=== PATIENT | female | born 1955 | race Two or more races ===

== ENCOUNTER 2016-10-04 07:57 | Day surgery (SDC) | payer BC ==
[2016-09-30 13:55] VITALS: BMI 31.6
--- NOTE | 2016-10-04 06:27 | HP ---
History & Physical Update - History History: No Change - Physical Physical: No Change - Assessment Assessment: No Change - Plan Plan: No Change
[~2016-10-04 07:57] MED LIST: TOBRA 0.3%/DEXAMETH 0.1% OPHTHALMIC SUSP 2.5 ML BTL TP ONE
[2016-10-04] MEDS ORDERED: MOXIFLOXACIN HCL 0.5% OPHTHALMIC 3 ML BOTTLE ONE (08:16)
[2016-10-04] MEDS ORDERED: CYCLOPENTOLATE HCL 1% OPHTH SOLN 2 ML BOTTLE ONE (08:16)
[2016-10-04] MEDS ORDERED: PHENYLEPHRINE 2.5% OPHTH SOLN 15 ML BOTTLE ONE (08:16)
[2016-10-04] MEDS ORDERED: TROPICAMIDE 1% OPHTH SOLN 15 ML BOTTLE ONE (08:16)
[2016-10-04 08:21] VITALS: TEMP 98
[2016-10-04] MEDS: MOXIFLOXACIN HCL 0.5% OPHTHALMIC 3 ML BOTTLE OP SCH ×2 (08:25→08:30)
[2016-10-04] MEDS: PHENYLEPHRINE 2.5% OPHTH SOLN 15 ML BOTTLE OP SCH ×2 (08:25→08:30)
[2016-10-04] MEDS: CYCLOPENTOLATE HCL 1% OPHTH SOLN 2 ML BOTTLE OP SCH ×2 (08:25→08:30)
[2016-10-04] MEDS: TROPICAMIDE 1% OPHTH SOLN 15 ML BOTTLE OP SCH ×2 (08:25→08:30)
[2016-10-04] MEDS ORDERED: MIDAZOLAM HCL 2 MG/2 ML SINGLE DOSE VIAL ONE (08:55)
[2016-10-04] MEDS ORDERED: TETRACAINE 0.5% OPHTH SOLN 2 ML BOTTLE OD ONE (08:57)
[2016-10-04] MEDS ORDERED: POVIDONE-IODINE 5% OPHTHALMIC PREP 30 ML SOLUTION OD ONE (08:59)
[2016-10-04] MEDS ORDERED: BSS (NA/CA/MG/K) BALANCED SALT SOLUTION OPHTH SOLN 15 ML BOTTLE OD ONE (09:08)
[2016-10-04] MEDS ORDERED: EPINEPHrine/PF 1 MG/1 ML (1:1,000) AMPULE SQ ONE (09:08)
[2016-10-04] MEDS ORDERED: CHONDROITIN SU A/HYALUR SOD 1 KIT IO ONE ×2 (09:08)
[2016-10-04] MEDS ORDERED: LIDOCAINE HCL 1% PRESERVATIVE FREE - 30ML VIAL IO ONE (09:08)
[2016-10-04] MEDS ORDERED: ACETYLCHOLINE 1:100 INTRA-OCUL 20 MG/2 ML KIT ONE (09:27)
[2016-10-04] MEDS ORDERED: ACETYLCHOLINE 1:100 INTRA-OCUL 20 MG/2 ML KIT IO ONE (09:47)
[2016-10-04] MEDS ORDERED: TOBRA 0.3%/DEXAMETH 0.1% OPHTHALMIC SUSP 2.5 ML BTL TP ONE (09:52)
[2016-10-04 12:22] VITALS: BP 120/82; PULSE 78
--- NOTE | 2016-10-04 13:35 | OP ---
DATE OF OPERATION: 10/04/2016 SURGEON: George Kuhn MD PREOPERATIVE DIAGNOSIS: Cataract, right eye. OPERATION: Phacoemulsification and intraocular lens implantation, right eye. POSTOPERATIVE DIAGNOSIS: Cataract, right eye. ANESTHESIA: Topical. COMPLICATIONS: Posterior capsular tear. BLOOD LOSS: None. SPECIMEN: None. BRIEF HISTORY: The patient is a 61-year-old woman with a past medical history of diabetes, who presented with decreased vision in the right eye down to 20/200 due to a 2+ to 3+ nuclear sclerotic lens. After the risks, benefits, and alternatives to cataract surgery were discussed with the patient including the increased risk of corneal decompensation due to her guttata, patient consented to surgery. DESCRIPTION OF PROCEDURE: The patient was brought to the operating room and prepped and draped in the usual sterile fashion. An eyelid speculum was inserted in the right eye. A paracentesis was made, and the anterior chamber was inflated with nonpreserved lidocaine. This was followed by injection of Viscoat. A groove was made in the temporal clear cornea which was tunneled forward with a crescent blade. The anterior chamber was entered with a 2.75 keratome. The cystotome was used to make an incision in the center of the capsule, and a continuous curvilinear capsulorrhexis was created. The lens was hydrodissected until it was found to rotate freely within the capsular bag. Phacoemulsification was started, and it was noted there was severe adherence of a quadrant located nasally. The remainder of the lens was removed; however, once this adherent quadrant was removed, it was noted that there was a posterior capsular tear at the area of this adherence. Irrigation and aspiration were attempted; however, due to the size of the posterior capsular tear, anterior vitrectomy was performed in order to clear the vitreous from the area. Irrigation and aspiration were used to remove some of the cortical material. However, an area subincisionally was unable to be removed with the anterior vitrector or with irrigation and aspiration. The anterior chamber and sulcus area were reinflated with Provisc. The wound was enlarged, and a 21.0-diopter MA60AC lens was folded and inserted into the sulcus. The 2nd haptic was dunked without incident. Irrigation and aspiration were used to remove residual viscoelastic. Miochol was injected into the eye, and the pupil was found to constrict round with no peaking. Two 10-0 nylon sutures were placed at the wound in order to maintain the eye to be watertight, and the eye at an appropriate pressure. The eyelid speculum was removed from the eye, and TobraDex drops and a clear shield were placed over the right eye. The patient was transferred to the recovery room in stable condition and will follow up tomorrow. Rosemarie [id number] MTDD
== END 2016-10-04 11:45 | disposition home or self-care (01) ==
LOC: JASU-SURG 07:57
PROVIDERS: ATTEND Ophthalmology
PROC: 08RJ3JZ Replacement of Right Lens with Synthetic Substitute, Percutaneous Approach (ICD-10-PCS; principal; 2016-10-04 10:00)
DX: H26.8 Other specified cataract (principal)

== ENCOUNTER 2017-11-28 07:14 | Day surgery (SDC) | payer BC ==
[2017-11-27 10:06] VITALS: BMI 35.4
[2017-11-28 07:34] VITALS: TEMP 98.7
[2017-11-28 12:09] VITALS: BP 149/69; PULSE 83
== END 2017-11-28 11:30 | disposition home or self-care (01) ==
LOC: JASU-SURG 07:14
PROVIDERS: ATTEND Ophthalmology
PROC: 08RK3JZ Replacement of Left Lens with Synthetic Substitute, Percutaneous Approach (ICD-10-PCS; principal; 2017-11-28)
DX: H26.9 Unspecified cataract (principal); H57.03 Miosis
CPT/HCPCS: 82962

== ENCOUNTER 2020-03-04 11:13 | Day surgery (SDC) | payer BC ==
--- NOTE | 2020-02-25 09:32 | HP ---
DATE OF ADMISSION: 03/04/2020 DATE OF DICTATION: 01/14/2020 BRIEF HISTORY: This is a 64-year-old female who in mid-December presented to [facility] with excruciating upper abdominal pain associated with nausea and vomiting. She was diagnosed as having biliary issues and subsequently passing a stone. She underwent an MRI at that time that demonstrated gallstones without evidence of CBD stone. Patient was managed medically and subsequently went on to resolve her pain. She had several other episodes following that acute event and each episode has lasted less than 6 hours. Patient denies fever, chills or sweats. No change in stool color or urine color. PAST MEDICAL HISTORY: Significant for reflux disease, diabetes and arthritic changes. PAST SURGICAL HISTORY: Patient has had laparoscopic oophorectomy in the past. ALLERGIES: None. MEDICATIONS: Metformin, Trulicity, omeprazole. SOCIAL HISTORY: Patient does not smoke, does not drink. No history of drug use. PHYSICAL EXAMINATION: HEENT: There is no icterus. Abdomen: Soft, nontender, nondistended. No CVA tenderness. Very well-healed laparoscopic oophorectomy scars. IMPRESSION/PLAN: Biliary colic, possibility of passing a common bile duct stone. This is a 64-year-old female with biliary disease. She was acutely seen in mid-December at [facility] for nausea, vomiting and sharp abdominal pain. An MRI performed at that time demonstrated gallstones without evidence of acute cholecystitis or CBD stone. Patient has seen her GI doctor and referred for surgery. Patient and myself had a long conversation regarding pros and cons of a laparoscopic cholecystectomy as well as the possibility of an open cholecystectomy. Patient will be scheduled for laparoscopic cholecystectomy. The indications, alternatives and complications of the procedure have been discussed at length. Questions have been answered. Due to the COVID issues patient wishes to go home the day of surgery and this will be determined at the time of surgery to possibly let her go home the same day. ADA MERIDA M.D. [id number] cc: MD Alton Centeno MD
[2020-03-04 08:39] VITALS: BMI 33.1
[~2020-03-04 11:13] MED LIST changes: +ACETAMINOPHEN 325 MG TABLET (FP) PO PRN; +ONDANSETRON 4 MG/2 ML VIAL IVPUSH PRN; -TOBRA 0.3%/DEXAMETH 0.1% OPHTHALMIC SUSP 2.5 ML BTL TP ONE; +morphine SULFATE 4 MG/ML VIAL IVPB PRN; +oxyCODONE HCL 5 MG TABLET PO PRN
[2020-03-04] MEDS ORDERED: D5-1/2NS+20 MEQ KCL - 20 MEQ/1,000 ML INFUS.BAG IV SCH (11:15)
[2020-03-04] MEDS ORDERED: MIDAZOLAM HCL 2 MG/2 ML SINGLE DOSE VIAL ONE (11:29)
[2020-03-04] MEDS ORDERED: PROPOFOL 20 ML ONE ×2 (11:35)
[2020-03-04] MEDS ORDERED: ROCURONIUM BROMIDE 50 MG/5 ML SYRINGE ONE (11:36)
[2020-03-04] MEDS ORDERED: DEXAMETHASONE SOD PHOSPHATE 4 MG/1 ML VIAL ONE (11:40)
[2020-03-04] MEDS ORDERED: ceFAZolin SODIUM 1 GM VIAL ONE (11:40)
[2020-03-04] MEDS ORDERED: ONDANSETRON 4 MG/2 ML VIAL ONE (11:40)
[2020-03-04] MEDS ORDERED: NEOSTIGMINE METHYLSULFATE 0.5 MG/ML - 10 ML MDV ONE (12:05)
[2020-03-04] MEDS ORDERED: GLYCOPYRROLATE 0.2 MG/1 ML VIAL ONE (12:06)
[2020-03-04] MEDS ORDERED: LACTATED RINGERS SOLUTION 1,000 ML IV SCH (13:00)
[2020-03-04] MEDS ORDERED: FAMOTIDINE 20 MG/50 ML IVPB 20 MG/50 ML MG IVPB ONE (14:10)
[2020-03-04] MEDS: INSULIN SLIDING SCALE (NOVOLOG) 1 VIAL SQ SCH ×2 (17:56→21:39)
[2020-03-05] MEDS: INSULIN SLIDING SCALE (NOVOLOG) 1 VIAL SQ SCH ×2 (06:50→13:02)
[2020-03-05 07:00] VITALS: BP 120/57; PULSE 77; TEMP 98.5
[2020-03-05] MEDS ORDERED: ENOXAPARIN NA (PORCINE) 40 MG/0.4 ML DISP.SYRIN SQ SCH (10:00)
[2020-03-05] MEDS ORDERED: PANTOPRAZOLE SODIUM 40 MG VIAL IVPUSH SCH (10:00)
[2020-03-05] MEDS ORDERED: METFORMIN HCL 2000 MG PO SCH (10:00)
--- NOTE | 2020-03-05 18:48 | OP ---
DATE OF OPERATION: 03/04/2020 PREOPERATIVE DIAGNOSIS: Symptomatic cholelithiasis, history of acute cholecystitis, chronic cholecystitis. POSTOPERATIVE DIAGNOSIS: Symptomatic cholelithiasis, history of acute cholecystitis, chronic cholecystitis. PROCEDURE: Laparoscopic cholecystectomy, lysis of adhesions, peritoneal lavage. SURGEON: Sy Samson MD. COOLING PAN TENDER: Ba James DO. ANESTHESIOLOGIST: Melia Strauss MD. ANESTHESIA: General anesthesia. ESTIMATED BLOOD LOSS: Minimal. SPECIMEN: Gallbladder. INDICATION: This is a 65-year-old gentleman admitted to [facility] room several months ago for acute cholecystitis. She was managed medically and now is here for a laparoscopic cholecystectomy. DESCRIPTION OF PROCEDURE: Patient identified and appropriately positioned on operating room table, placed under general anesthesia, the abdomen prepped and draped in the usual sterile fashion with ChloraPrep. An infraumbilical incision was made deep in the subcutaneous tissue. The fascia was divided sharply. The peritoneum incised under direct vision. A Veress needle followed by a structural needle placed. The remaining 3 ports placed under direct vision, epigastric 5-mm, and two right upper quadrant 5-mm ports. The patient was noted to have adhesions in the right lateral abdominal wall; those adhesions were taken down. The adhesions were from her previous surgery. The gallbladder was verified in the right upper quadrant. It was reflected over the dome of the liver in standard fashion going from lateral medial to neck and infundibulum of the gallbladder identified followed by the cystic duct. Cystic duct circumferentially isolated, clipped, and then divided. Cystic artery identified and clipped, and divided as well. The gallbladder itself was removed from the liver bed with electrocautery. Prior to complete liver removal, liver bed was irrigated. The operative field noted to be hemostatic. Ports were removed. Ports site hemostatic. The gallbladder brought out the umbilical port site. The fascia at the umbilical port site was reapproximated with 0 Vicryl suture. All skin closed with 4-0 subcuticular Biosyn followed by Dermabond. At the conclusion of the case, sponge and needle counts were correct. ATTESTATION: Brief operative note handwritten on the preprinted form. [facility] queried prior to giving narcotics. Rosemarie GOINS [id number] cc: Lorraine Cancino MD. MTDD
--- NOTE | 2020-03-09 15:33 | PATH ---
Surgical Pathology Report Patient Name: ADRIAN JONES Med. Rec. #: [id number] /Age/Gender: 1955 (Age: 65) / F Account: [id number] Location: [facility] MED-SURG Taken: 03/04/2020 Received: 03/04/2020 Reported: 03/09/2020 Physicians: Sy Samson Specimen(s) Received GALLBLADDER Clinical History Pattern Chronic cholecystitis, cholelithiasis Final Diagnosis GALLBLADDER, CHOLECYSTECTOMY: CHRONIC CHOLECYSTITIS, CHOLESTEROLOSIS AND CHOLELITHIASIS. Electronically Signed Batsheva Noriega M.D. Gross Description Received in formalin, labeled "gallbladder," is a 6.3 x 2.2 x 1.8 cm. gallbladder with a 0.2 cm. in length portion of cystic duct attached. The outer surface is mitchell-tolentino and varies from smooth to shaggy. The lumen contains green, tenacious bile as well as multiple brown, irregular to fragmented choleliths ranging from 0.1-1.4 cm in greatest dimension. The mucosa is dark green and velvety with gold cholesterol stippling. The wall of the gallbladder ranges from 0.1-0.3 cm. in thickness. Forensic Manager sections are submitted in one cassette. 03/05/2020 [facility]03/05/2020
== END 2020-03-05 14:26 | disposition home or self-care (01) ==
LOC: FASUSAT 11:13 → FM/S 16:45 → FASUSAT 16:45
PROVIDERS: ATTEND Surgery
PROC: 0FT44ZZ Resection of Gallbladder, Percutaneous Endoscopic Approach (ICD-10-PCS; principal; 2020-03-04 11:53)
DX: K80.10 Calculus of gallbladder with chronic cholecystitis without obstruction (principal)
CPT/HCPCS: 82962; 88304-TC; 94760